=== PATIENT | male | born 1950 | race Caucasian/White ===

== ENCOUNTER 2018-03-22 08:22 | Day surgery (SDC) | payer MEDICARE ==
[2018-03-21 17:29] VITALS: BMI 29.4
[2018-03-22 09:21] LABS: Hemoglobin 12.6 g/dL (14.0-18.0); Mean Corpuscular Hemoglobin 31.6 pg (27.0-31.0); Mean Corpuscular Volume 93.2 fl (80.0-94.0); Mean Platelet Volume 7.2 fL (7.4-10.4); Platelet Count 262 thou/uL (130-400); RBC Distribution Width 13.6 % (11.5-14.5); Red Blood Cell (RBC) Count 3.99 mill/uL (4.70-6.10); White Blood Cell (WBC) Count 5.4 thou/uL (4.8-10.8)
[2018-03-22 09:27] LABS: INR-International Normal Ratio 1.2; PTT 28.8 SEC (22.9-36.1); Prothrombin Time 15.5 SEC (12.0-14.7)
[2018-03-22 09:36] LABS: Anion Gap 12 mmol/L (10-20); BUN (Urea Nitrogen) 17 mg/dL (8.4-25.7); Calc. Creatinine Clearance 109 mL/min (70-130); Calcium 9.1 mg/dL (7.8-10.44); Carbon Dioxide 23 mmol/L (23-31); Chloride 108 mmol/L (98-107); Estimated GFR-MDRD 90; Glucose 124 mg/dL (80-115); Potassium 4.4 mmol/L (3.5-5.1); Sodium 139 mmol/L (136-145)
[2018-03-22] MEDS ORDERED: PROPOFOL 40 ML ONE (09:38)
--- NOTE | 2018-03-22 12:43 | ECHO ---
TRANSESOPHAGEAL ECHOCARDIOGRAM: DATE OF SERVICE: 03/22/18 REASON FOR STUDY: Transesophageal echo to be performed in preparation of cardioversion for atrial fibrillation. 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 Please see their notes for d etails. After adequate sedation was achieved, the transesophageal probe was inserted into the mouth a nd into the esophagus without problems. Multiplanar views were then obtained. FINDINGS: Left ventricle appears to be normal size with normal wall thickness. Systolic function is low normal with EF estimated at 45-50%. No regional wall motion abnormalities. Left atrium is dilated. Left atrial appendage is large appendage with spontaneous echo contrast, but no evidence of mass or t hrombus. Normal velocities. Right atrium is normal size. No mass or thrombus. Intraatrial septum has a small patent foramen ovale with mostly left to right shunts. This was seen b y color Doppler. Right ventricle is normal size with normal systolic function. Aortic root is normal size with atherosclerosis. Aortic valve is sclerotic, but opens well, three cusps, no stenosis. There is mild aortic insufficie ncy. Mitral valve is structurally normal. There is mild to moderate MR. No stenosis. Tricuspid valve is structurally normal. There is mild TR. Pulmonary valve is structurally normal. There is mild PI. Thoracic descending aorta is normal size with no evidence of dissections or aneurysmal dilatations. T here is a grade 2/5 atherosclerotic disease. IMPRESSION: 1. Mildly reduced LV systolic function, EF of 45-50%. 2. Left atrial enlargement. 3. Large left atrial appendage without mass or thrombus. 4. Small patent foramen ovale with mostly left to right shunting. 5. Aortic valve sclerosis with mild AI. 6. Mild to moderate MR. 7. Mild TR, mild PI. 8. 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
--- NOTE | 2018-03-22 12:49 | OP ---
CARDIOLOGY PROCEDURE NOTE: Date: 03/22/18 PREPROCEDURE DIAGNOSIS: Atrial fibrillation and LV dysfunction. PROCEDURE: Electrical cardioversion. PROCEDURE SUMMARY: Mr. Chen is a pleasant 67-year-old white gentleman who comes to the procedure area for a SHARA card ioversion. After SHARA cleared him from any thrombus, the pads were placed. The anesthesiology departme nt provided sedation for the patient. Please see their notes for details). A single synchronized 100 joules shock was delivered, successfully converting him from atrial fibrillation into sinus bradycard ia. Patient tolerated procedure well. RECOMMENDATIONS: 1. Continue full anticoagulation with Eliquis. Continue Multaq. 2. Will follow up in the office in one month.
[2018-03-22] MEDS ORDERED: PROPOFOL 200 MG/20 ML VIAL ONE (13:27)
--- NOTE | 2018-03-22 16:29 | EKG ---
Test Reason : PREOP Blood Pressure : / mmHG Vent. Rate : 067 BPM Atrial Rate : 079 BPM P-R Int : 000 ms QRS Dur : 106 ms QT Int : 446 ms P-R-T Axes : 000 007 101 degrees QTc Int : 471 ms Atrial fibrillation RSR' or QR pattern in V1 suggests right ventricular conduction delay Nonspecific T wave abnormality , probably digitalis effect Prolonged QT Abnormal ECG Confirmed by CAMILA SIERRA ([id number]) on 03/22/2018 4:29:25 PM Referred By: KETURAH Confirmed By:CAMILA SIERRA
--- NOTE | 2018-03-22 16:36 | EKG ---
Test Reason : POST SHARA/CARDIOVERSI Blood Pressure : / mmHG Vent. Rate : 047 BPM Atrial Rate : 047 BPM P-R Int : 218 ms QRS Dur : 106 ms QT Int : 510 ms P-R-T Axes : 009 016 090 degrees QTc Int : 451 ms Marked sinus bradycardia with 1st degree A-V block with Premature atrial complexes Incomplete right bundle branch block Nonspecific T wave abnormality Abnormal ECG Confirmed by CAMILA SIERRA ([id number]) on 03/22/2018 4:36:26 PM Referred By: KETURAH Confirmed By:CAMILA SIERRA
== END 2018-03-22 11:52 | disposition home or self-care (01) ==
LOC: CCL 08:22
PROVIDERS: ATTEND Internal Medicine Cardiovascular Disease
PROC: 5A2204Z Restoration of Cardiac Rhythm, Single (ICD-10-PCS; principal; 2018-03-22)
PROC: B24BZZ4 Ultrasonography of Heart with Aorta, Transesophageal (ICD-10-PCS; 2018-03-22)
DX: I48.0 Paroxysmal atrial fibrillation (principal); I10 Essential (primary) hypertension; Q21.1 Atrial septal defect; I70.0 Atherosclerosis of aorta; Z79.01 Long term (current) use of anticoagulants; Z79.899 Other long term (current) drug therapy
CPT/HCPCS: 80048; 85027; 85610; 85730; 92960; 93005; 93010; 93312; J2704

== ENCOUNTER 2019-12-17 09:44 | Outpatient (CLI) | payer MEDICARE ==
--- NOTE | 2019-12-17 10:02 | RAD ---
EXAM: Chest 2 views: HISTORY: Chronic cough COMPARISON: None. FINDINGS: There is a normal-sized cardiomediastinal silhouette. There is no evidence of consolidation, mass, or pleural effusion. The bones are unremarkable. IMPRESSION: No evidence of acute cardiopulmonary disease
== END 2019-12-17 09:45 | disposition home or self-care (01) ==
LOC: SCSRAD 09:44
PROVIDERS: ATTEND Family Medicine
DX: R05 Cough (principal)
CPT/HCPCS: 71046

== ENCOUNTER 2021-09-13 11:38 | Outpatient (CLI) | payer MEDICARE ==
[2021-09-14 00:58] LABS: SARS-CoV-2 PCR by NAA Not Detected (NotDetected)
== END 2021-09-13 11:39 | disposition home or self-care (01) ==
LOC: LABBT 11:38
PROVIDERS: ATTEND Ophthalmology Retina Specialist
DX: Z01.812 Encounter for preprocedural laboratory examination (principal); H35.341 Macular cyst, hole, or pseudohole, right eye; Z20.822 Contact with and (suspected) exposure to COVID-19
CPT/HCPCS: U0003; U0005

== ENCOUNTER 2022-05-02 15:00 | Outpatient (CLI) | payer MEDICARE | END 2022-05-02 15:01 | disposition home or self-care (01) | LOC: BICULT 15:00 | PROVIDERS: ATTEND Family Medicine | DX: N50.89 Other specified disorders of the male genital organs (principal); N43.3 Hydrocele, unspecified | CPT/HCPCS: 76870; 93976 ==